=== PATIENT | male | born 1970 | race Caucasian/White ===

== ENCOUNTER → 2021-05-05 | Outpatient (CLI) | payer OTHER ==
[~2021-05-05] MED LIST: CHLO25 PO; FAMO20 PO; ONDA4 PO; ONDA4ODT MM; [UNRECOGNIZED DRUG - REMARK]
== END | disposition home or self-care (01) ==
LOC: LAB SHORT 11:01 → LAB 11:01
DX: D75.89 Other specified diseases of blood and blood-forming organs (principal)
CPT/HCPCS: 82607; 82746

== ENCOUNTER → 2021-12-25 | Outpatient (CLI) | payer OTHER ==
[2021-12-25 13:12] LABS: BASOPHILS ABSOLUTE AUTO 0.04 K/mm3 (0.00-0.23); BASOPHILS PERCENT AUTO 1 % (0-2); EOSINOPHILS ABSOLUTE AUTO 0.08 K/mm3 (0.00-0.68); EOSINOPHILS PERCENT AUTO 2 % (0-6); Hematocrit 41.4 % (37.0-53.0); Hemoglobin 14.1 g/dL (13.5-17.5); IMMATURE GRAN ABSOLUTE AUTO 0.02 K/mm3 (0.00-0.10); IMMATURE GRAN PERCENT AUTO 0 % (0-1); LYMPHOCYTES ABSOLUTE AUTO 1.89 K/mm3 (0.84-5.20); LYMPHOCYTES PERCENT AUTO 39 % (21-46); MONOCYTES PERCENT AUTO 8 % (4-13); Mean Corpuscular HGB Conc 34.1 g/dL (31.5-36.5); Mean Corpuscular Volume 94 fL (80-100); Mean Platelet Volume 11.2 fL (9.1-12.4); NEUTROPHILS ABSOLUTE AUTO 2.44 K/mm3 (1.96-9.15); NEUTROPHILS PERCENT AUTO 50 % (41-73); Platelet Count 211 K/mm3 (150-400); RDW Coefficient Variation 12.3 % (11.7-14.2); RDW Standard Deviation 42.6 fL (35.1-46.3); White Blood Cell Count 4.87 K/mm3 (4.00-11.30)
[2021-12-25 13:50] LABS: Alanine Aminotransfer (ALT/SGP 26 U/L (12-78); Albumin, Blood 3.7 g/dL (3.4-5.0); Albumin/Globulin Ratio 0.8 (0.8-1.8); Alk Phos 71 U/L (50-136); Anion Gap 7 mmol/L (6-16); Aspartate Aminotrans (AST/SGOT 24 U/L (12-37); Bilirubin, Total 0.3 mg/dL (0.1-1.0); Blood Urea Nitrogen 12 mg/dL (8-24); Bun/Creatinine Ratio 10.3 (12.0-20.0); CO2, Blood 22 mmol/L (21-32); Calcium, Blood 9.2 mg/dL (8.5-10.1); Chloride, Blood 112 mmol/L (98-108); Creatinine, Blood 1.16 mg/dL (0.60-1.20); Globulin, Blood 4.9 g/dL (2.2-4.0); Glomerular Filtration Rate >60 (60-); Glucose, Blood 83 mg/dL (70-99); Potassium, Blood 4.2 mmol/L (3.5-5.5); Sodium, Blood 141 mmol/L (136-145); Total Protein, Blood 8.6 g/dL (6.4-8.2); Uric Acid, Blood 8.1 mg/dL (3.5-7.2)
== END ==
LOC: LAB SHORT 13:08
PROVIDERS: Family Medicine
DX: M10.9 Gout, unspecified (principal)
CPT/HCPCS: 80053; 84550; 85025

== ENCOUNTER 2023-11-05 06:53 | Emergency (ER) | payer OTHER ==
[~2023-11-05] VITALS: Ht 175.3 cm; Wt 72.6 kg
[2023-11-05 08:09] LABS: Albumin, Blood 3.6 g/dL (3.4-5.0); Albumin/Globulin Ratio 0.9 (0.8-1.8); Bilirubin, Total 0.7 mg/dL (0.1-1.0); Bun/Creatinine Ratio 10.8 (12.0-20.0); Calcium, Blood 8.8 mg/dL (8.5-10.1); Creatinine, Blood 1.57 mg/dL (0.60-1.20); Globulin, Blood 3.9 g/dL (2.2-4.0); Potassium, Blood 3.7 mmol/L (3.5-5.5); Total Protein, Blood 7.5 g/dL (6.4-8.2)
[2023-11-05] MEDS ORDERED: CHLO25 PO (09:42)
[2023-11-05] MEDS ORDERED: ONDA4ODT MM (09:42)
[2023-11-05] MEDS ORDERED: LOPE2C PO (09:42)
[2023-11-05 09:57] VITALS: BP 117/71
== END 2023-11-05 09:59 | disposition home or self-care (01) ==
LOC: ER 06:53
PROVIDERS: Emergency Medicine
DX: F10.20 Alcohol dependence, uncomplicated (principal); Z71.41 Alcohol abuse counseling and surveillance of alcoholic; R74.01 Elevation of levels of liver transaminase levels; D69.6 Thrombocytopenia, unspecified; Z79.899 Other long term (current) drug therapy
CPT/HCPCS: 80053; 99284-25; A9270

== ENCOUNTER → 2024-05-07 | Outpatient (CLI) | payer OTHER ==
[~2024-05-07] MED LIST changes: +LOPE2C PO
[2024-05-07 09:24] LABS: BASOPHILS ABSOLUTE AUTO 0.03 K/mm3 (0.00-0.23); BASOPHILS PERCENT AUTO 1 % (0-2); EOSINOPHILS ABSOLUTE AUTO 0.04 K/mm3 (0.00-0.68); EOSINOPHILS PERCENT AUTO 1 % (0-6); Hematocrit 34.8 % (37.0-53.0); Hemoglobin 11.7 g/dL (13.5-17.5); IMMATURE GRAN ABSOLUTE AUTO 0.05 K/mm3 (0.00-0.10); IMMATURE GRAN PERCENT AUTO 1 % (0-1); LYMPHOCYTES ABSOLUTE AUTO 1.58 K/mm3 (0.84-5.20); LYMPHOCYTES PERCENT AUTO 40 % (21-46); MONOCYTES ABSOLUTE AUTO 0.43 K/mm3 (0.16-1.47); MONOCYTES PERCENT AUTO 11 % (4-13); Mean Corpuscular HGB 34.9 pg (26.0-34.0); Mean Corpuscular HGB Conc 33.6 g/dL (31.5-36.5); Mean Corpuscular Volume 104 fL (80-100); Mean Platelet Volume 9.4 fL (9.1-12.4); NEUTROPHILS ABSOLUTE AUTO 1.87 K/mm3 (1.96-9.15); NEUTROPHILS PERCENT AUTO 47 % (41-73); Platelet Count 154 K/mm3 (150-400); RDW Coefficient Variation 13.3 % (11.7-14.2); RDW Standard Deviation 50.7 fL (35.1-46.3); Red Blood Cell Count 3.35 M/mm3 (4.30-5.90)
[2024-05-07 09:47] LABS: Albumin, Blood 3.5 g/dL (3.4-5.0); Albumin/Globulin Ratio 0.7 (0.8-1.8); Bilirubin, Total 0.2 mg/dL (0.1-1.0); Bun/Creatinine Ratio 11.7 (12.0-20.0); Calcium, Blood 9.4 mg/dL (8.5-10.1); Creatinine, Blood 1.2 mg/dL (0.60-1.20); Globulin, Blood 4.9 g/dL (2.2-4.0); Potassium, Blood 4.5 mmol/L (3.5-5.5); Thyroid Stimulating Hormone 1.688 uIU/mL (0.360-4.800); Total Protein, Blood 8.4 g/dL (6.4-8.2)
== END | disposition home or self-care (01) ==
LOC: LAB SHORT 09:17 → LAB 09:17
PROVIDERS: Internal Medicine
DX: R42 Dizziness and giddiness (principal)
CPT/HCPCS: 80053; 82607; 82746; 83880; 84443; 84484; 85025

== ENCOUNTER 2024-10-16 12:13 | Day surgery (SDC) | payer OTHER ==
[~2024-10-16] VITALS: Ht 165.1 cm; Wt 69.5 kg
[~2024-10-16 12:13] MED LIST changes: +Lactated Ringer's 1,000 ML IV ONE; +Ropivacaine 0.5% HCL/PF 5 MG/ML 30ML Vial ONE
[2024-10-16] MEDS ORDERED: Dexamethasone Sod Phos 10 MG/ML 1ML VIAL ONE (13:54)
[2024-10-16] MEDS ORDERED: Ondansetron HCl 2 MG / ML 2ML Vial ONE (13:54)
[2024-10-16] MEDS ORDERED: Bupivacaine 0.5% HCl 5 MG/ML 30MLVIAL ONE (13:54)
[2024-10-16] MEDS ORDERED: Midazolam HCl 1MG / ML 2ML Vial ONE (13:54)
[2024-10-16] MEDS ORDERED: Ketorolac Tromethamine 30mg Vial ONE (13:54)
[2024-10-16] MEDS ORDERED: FentaNYL Citrate 50 MCG/ML 2 ML Injection ONE ×2 (13:54→16:16)
[2024-10-16] MEDS ORDERED: propofoL 20 ML IV ONE (13:54)
[2024-10-16] MEDS ORDERED: LOSA50 PO (13:58)
[2024-10-16] MEDS ORDERED: OXYC5 PO (14:00)
[2024-10-16] MEDS ORDERED: OMEP20ER PO (14:01)
[2024-10-16] MEDS ORDERED: ALLOPURINOL100 M1 PO (14:01)
[2024-10-16] MEDS ORDERED: METOPROLOL SUCC25 MG PO (14:02)
[2024-10-16] MEDS ORDERED: Vitamin B-12100 MCG PO (14:03)
[2024-10-16] MEDS ORDERED: Vitamin C100 M1 PO (14:03)
[2024-10-16] MEDS ORDERED: NYST237S MT (14:06)
[2024-10-16] MEDS ORDERED: VITAMIN B-1 100MG (14:07)
[2024-10-16] MEDS ORDERED: CeFAZolin Sodium 2,000 MG VIAL ONE (14:09)
[2024-10-16] MEDS ORDERED: Lactated Ringer's 1,000 ML IV ONE (14:15)
--- NOTE | 2024-10-16 14:53 | NUR ---
10/16/[address] NOTIFIED THAT PATIENT HAS REPORTED HE GETS RANDOM CHEST PAINS SOMETIMES THAT LAST 5-10 MINUTES WITH RELIEF WITH REST/STOPPING ACTIVITY AND TAKING DEEP BREATHS, PT DENIES ACCOMPANYING SYMPTOMS SUCH JAW PAIN OR ARM PAIN OR INDIGESTION, BUT STATED HE DOES EXPERIENCE SHORTNESS OF BREATH WITH IT. PT'S PCP DID EKG AND ECHO WHEN THIS WAS REPORTED TO HER A FEW WEEKS AGO. DR LEON NOTIFIED THAT PATIENT ALSO EXPERIENCES DIZZINESS RANDOMLY DAILY LASTING ABOUT 30 SECONDS ACCOMPANIED BY SHAKING/TREMORS. DR LEON NOTIFIED PATIENT HAS HX OF SEIZURE 8-9 MONTHS AGO THAT HIS WITNESSED IN WHICH HE URINATED ON HIMSELF AND WAS SHAKING. THIS PATIENT REPORTED WAS THE ONLY TIME THIS HAS HAPPENED, PER PATIENT AND HIS PCP HAS SENT REFERRAL TO NEUROLOGY BUT HE HAS NOT VISITED NEUROLOGY YET. TIMEOUT FOR BLOCK PROCEDURE: 1443 START FOR BLOCK PROCEDURE: 1445 END BLOCK PROCEUDRE BY DR LEON: [id number]
[2024-10-16] MEDS ORDERED: Sugammadex Sodium 200 MG/2ML SDV (100 MG/ML) ONE (15:33)
[2024-10-16] MEDS ORDERED: OxyCODONE HCL 5 MG TAB ONE (16:14)
[2024-10-16 16:29] VITALS: BP 132/94
--- NOTE | 2024-10-16 17:07 | NUR ---
10/16/24 2637 Sandie Urena PT STATED PAIN LEVEL WAS A 5/10 AT DISCHARGE AND SAID IT WAS TOLERABLE. PT DRANK A CUP OF APPLE JUICE IN STEP DOWN W/O DIFFICULTY AND WAS SPEAKING WITH HIS WHILE IN STEPDOWN. HE WAS WHEELED OUT TO HIS WIFES CAR BY THIS RN AND TRANFERED WITHOUT ISSUES INTO THE CAR. PT STATED THEY ARE GOING TO IN STORE [facility] FROM [facility] THEN GOIING HOME.
== END 2024-10-16 17:02 | disposition home or self-care (01) ==
LOC: ORSCSDS 12:13
PROVIDERS: Podiatrist Foot & Ankle Surgery
PROC: 0QSM04Z Reposition Left Tarsal with Internal Fixation Device, Open Approach (ICD-10-PCS; principal; 2024-10-16 14:00)
DX: S92.012A Displaced fracture of body of left calcaneus, initial encounter for closed fracture (principal); W18.41XA Slipping, tripping and stumbling without falling due to stepping on object, initial encounter; I10 Essential (primary) hypertension; K21.9 Gastro-esophageal reflux disease without esophagitis; Z79.899 Other long term (current) drug therapy; F17.210 Nicotine dependence, cigarettes, uncomplicated
CPT/HCPCS: A9270; C1713; C1769; J0690; J1100; J1885; J2250; J2405; J2704; J2795; J3010; J7120

== ENCOUNTER 2025-04-12 07:20 | Day surgery (SDC) | payer OTHER ==
[~2025-04-12] VITALS: Ht 165.1 cm; Wt 63.6 kg
[~2025-04-12 07:20] MED LIST changes: +ALLOPURINOL100 M1 PO; +LOSA50 PO; -Lactated Ringer's 1,000 ML IV ONE; +METOPROLOL SUCC25 MG PO; +NYST237S MT; +OMEP20ER PO; +OXYC5 PO; -Ropivacaine 0.5% HCL/PF 5 MG/ML 30ML Vial ONE; +VITAMIN B-1 100MG; +Vitamin B-12100 MCG PO; +Vitamin C100 M1 PO
[2025-04-12] MEDS ORDERED: propofoL 50 ML IV ONE (07:38)
[2025-04-12] MEDS ORDERED: Lactated Ringer's 1,000 ML IV ONE (08:21)
[2025-04-12] MEDS ORDERED: ePHEDrine Sulfate 50 MG/ML 1ML Injection ONE (09:41)
[2025-04-12 10:24] VITALS: BP 121/84
== END 2025-04-12 10:08 | disposition home or self-care (01) ==
LOC: ORSCSDS 07:20
PROVIDERS: Internal Medicine Gastroenterology
PROC: 0DBN8ZX Excision of Sigmoid Colon, Via Natural or Artificial Opening Endoscopic, Diagnostic (ICD-10-PCS; principal; 2025-04-12 09:00)
PROC: 0DBK8ZX Excision of Ascending Colon, Via Natural or Artificial Opening Endoscopic, Diagnostic (ICD-10-PCS; principal; 2025-04-12 09:00)
PROC: 0DJ08ZZ Inspection of Upper Intestinal Tract, Via Natural or Artificial Opening Endoscopic (ICD-10-PCS; principal; 2025-04-12 09:00)
PROC: 0DBM8ZX Excision of Descending Colon, Via Natural or Artificial Opening Endoscopic, Diagnostic (ICD-10-PCS; principal; 2025-04-12 09:00)
DX: K62.5 Hemorrhage of anus and rectum (principal); K92.0 Hematemesis; K74.60 Unspecified cirrhosis of liver; D12.2 Benign neoplasm of ascending colon; D12.4 Benign neoplasm of descending colon; K63.5 Polyp of colon; Z79.899 Other long term (current) drug therapy
CPT/HCPCS: 88305; J2704

== ENCOUNTER 2025-07-22 10:01 | Emergency (ER) | payer OTHER ==
[~2025-07-22] VITALS: Ht 180.3 cm; Wt 68.0 kg
[2025-07-22] MEDS ORDERED: ALENDRONATE SOD35 M6 PO (10:56)
[2025-07-22 11:04] LABS: BASOPHILS ABSOLUTE AUTO 0.03 K/mm3 (0.00-0.23); BASOPHILS PERCENT AUTO 1 % (0-2); EOSINOPHILS ABSOLUTE AUTO 0.11 K/mm3 (0.00-0.68); EOSINOPHILS PERCENT AUTO 2 % (0-6); Hematocrit 42.2 % (37.0-53.0); Hemoglobin 13.9 g/dL (13.5-17.5); IMMATURE GRAN ABSOLUTE AUTO 0.01 K/mm3 (0.00-0.10); IMMATURE GRAN PERCENT AUTO 0 % (0-1); LYMPHOCYTES ABSOLUTE AUTO 1.81 K/mm3 (0.84-5.20); LYMPHOCYTES PERCENT AUTO 31 % (21-46); MONOCYTES ABSOLUTE AUTO 0.43 K/mm3 (0.16-1.47); MONOCYTES PERCENT AUTO 7 % (4-13); Mean Corpuscular HGB Conc 32.9 g/dL (31.5-36.5); Mean Corpuscular Volume 98 fL (80-100); NEUTROPHILS ABSOLUTE AUTO 3.43 K/mm3 (1.96-9.15); NEUTROPHILS PERCENT AUTO 59 % (41-73); NRBC ABSOLUTE 0.00 K/mm3 (0.00-0.02); NRBC Auto 0.0 /100 WBC (0.0-0.2); Platelet Count 132 K/mm3 (150-400); RDW Coefficient Variation 12.2 % (11.7-14.2); RDW Standard Deviation 44.2 fL (35.1-46.3)
[2025-07-22 12:08] LABS: Alanine Aminotransfer (ALT/SGP 25.0 U/L (12-78); Albumin, Blood 3.6 g/dL (3.4-5.0); Albumin/Globulin Ratio 0.8 (0.8-1.8); Anion Gap 7.0 mmol/L (3-11); Aspartate Aminotrans (AST/SGOT 26.0 U/L (12-37); Bilirubin, Total 0.6 mg/dL (0.1-1.0); Blood Urea Nitrogen 17.0 mg/dL (8-24); CO2, Blood 23.0 mmol/L (21-32); Calcium, Blood 9.9 mg/dL (8.5-10.1); Chloride, Blood 110.0 mmol/L (98-108); Creatinine, Blood 1.04 mg/dL (0.60-1.20); Globulin, Blood 4.5 g/dL (2.2-4.0); Glucose, Blood 105.0 mg/dL (70-99); Potassium, Blood 4.2 mmol/L (3.5-5.5); Sodium, Blood 136.0 mmol/L (136-145); Total Protein, Blood 8.1 g/dL (6.4-8.2)
[2025-07-22 13:45] VITALS: BP 126/87
[2025-07-22] MEDS ORDERED: GLYDO6 M2 MM (13:53)
== END 2025-07-22 14:07 | disposition home or self-care (01) ==
LOC: ER 10:01
PROVIDERS: Emergency Medicine
DX: R13.10 Dysphagia, unspecified (principal); Z88.8 Allergy status to other drugs, medicaments and biological substances; Z79.899 Other long term (current) drug therapy
CPT/HCPCS: 80053; 85025